=== PATIENT | male | born 1960 | race Caucasian/White ===

== ENCOUNTER 2022-04-20 21:19 | Emergency (ER) | payer OTHER ==
[~2022-04-20] VITALS: Ht 172.7 cm; Wt 92.0 kg
[~2022-04-20 21:19] MED LIST: AMLO-257 PO; ASPI-1444 PO; ATOR40TA28 PO; FURO20 PO; GABA-1181 PO; GLIP5TAB12 PO; ICOS1CAP PO; METF-1211 PO; METO-558 PO; SACU1TAB7 PO; SENN-152 PO; TICA90TA PO
[2022-04-20 22:57] VITALS: BP 120/74
== END 2022-04-20 23:26 | disposition home or self-care (01) ==
LOC: EMS 22:16
DX: R04.0 Epistaxis (principal); E11.9 Type 2 diabetes mellitus without complications; E78.00 Pure hypercholesterolemia, unspecified; I10 Essential (primary) hypertension; F17.210 Nicotine dependence, cigarettes, uncomplicated; F12.90 Cannabis use, unspecified, uncomplicated; Z86.73 Personal history of transient ischemic attack (TIA), and cerebral infarction without residual deficits; Z86.79 Personal history of other diseases of the circulatory system; Z98.890 Other specified postprocedural states
CPT/HCPCS: 30901; 30903; 99284; Z7502